=== PATIENT | male | born 1950 | race Caucasian/White ===

== ENCOUNTER 2024-03-09 09:16 | Emergency (ER) | payer OTHER ==
[~2024-03-09] VITALS: Ht 177.8 cm; Wt 91.4 kg
[2024-03-09 10:06] LABS: Urine Bacteria None Seen /hpf (None Seen)
[2024-03-09] MEDS: ONDANSETRON HCL 4 MG/2 ML VIAL IV ONE (10:22)
[2024-03-09] MEDS: SODIUM CHLORIDE 0.9% 1,000 ML IVB ONE (10:24)
[2024-03-09 10:33] VITALS: BP 96/62; TEMP 97.7
[2024-03-09 10:35] VITALS: PULSE 80; RESP 18; O2SAT 97
[2024-03-09 10:43] LABS: Basophils # (auto) 0 10 ^3/uL (0-0.2); Basophils % (auto) 0.5 % (0.0-2.0); Eosinophils # (auto) 0 10 ^3/uL (0-0.8); Eosinophils % (auto) 0.5 % (0.0-7.0); Hematocrit 48.7 % (41.0-53.0); Hemoglobin 16.3 g/dL (13.5-17.5); Lymphocytes # (auto) 1.1 10 ^3/uL (0.4-5.4); Lymphocytes % (auto) 11.4 % (10.0-50.0); Mean Corpuscular Hemoglobin 30.5 pg (28.0-32.0); Mean Corpuscular Hgb Conc. 33.5 g/dL (32.0-36.0); Mean Corpuscular Volume 91.2 fL (80.0-100.0); Monocytes # (auto) 0.5 10 ^3/uL (0-1.3); Monocytes % (auto) 5.3 % (0.0-12.0); Neutrophils % (auto) 82.3 % (37.0-80.0); Nucleated Red Blood Cells % 0.1 %; Red Blood Cells 5.34 10^6/uL (4.5-5.90); Red Cell Distribution Width 14.8 % (11.8-14.3); White Blood Cell 9.8 10^3/uL (4.4-10.8)
[2024-03-09 10:53] LABS: Urine Blood 3+ /uL (Negative); Urine Clarity Clear (Clear); Urine Color Yellow (Yellow); Urine Hyaline Cast FEW /lpf (0 - 2); Urine Mucus FEW (None Seen); Urine Protein, UAD 1+ (Negative); Urine Specific Gravity 1.029 (1.001-1.035); Urine Urobilinogen 3 mg/dL (Negative); Urine WBC 5 /hpf (0 - 3)
[2024-03-09 11:01] LABS: Chloride 108 mmol/L (98-107); Sodium 140 mmol/L (136-145)
[2024-03-09 11:02] LABS: Anion Gap 8 (5-15); Carbon Dioxide 24 mmol/L (20-30)
[2024-03-09 11:03] LABS: Calcium 10.4 mg/dL (8.5-10.1)
[2024-03-09 11:07] LABS: Glucose 112 mg/dL (74-106)
[2024-03-09 11:17] LABS: Blood Urea Nitrogen 15 mg/dL (9-23)
[2024-03-09 11:18] LABS: Potassium 4.5 mmol/L (3.5-5.1)
[2024-03-09] MEDS ORDERED: HYDR-4902 PO (12:09)
== END 2024-03-09 12:49 | disposition home or self-care (01) ==
LOC: ER 09:16
DX: N20.0 Calculus of kidney (principal); E78.5 Hyperlipidemia, unspecified; I10 Essential (primary) hypertension
CPT/HCPCS: 36415; 74176; 80048; 81001; 85025; 96361; 96374; 99285; J2405; J7030